=== PATIENT | female | born 1975 | race Caucasian/White ===

== ENCOUNTER 2017-07-31 14:15 | Outpatient (CLI) | payer OTHER ==
[2017-07-31 15:40] LABS: #Basophils 0.1 thou/uL (0.0-0.2); #Eosinphils 0.1 thou/uL (0.0-0.7); #Lymphocytes 2.5 thou/uL (1.20-3.40); #Monocytes 0.5 thou/uL (0.11-0.59); #Neutrophils 3.3 thou/uL (1.40-6.50); %Basophils 0.9 % (0.0-1.0); %Lymphocytes 38.2 % (21.0-51.0); %Neutrophils 50.9 % (42.0-75.0); Mean Corpuscular HGB CONC 34.2 g/dL (32.0-36.0); Mean Corpuscular Hemoglobin 30.8 pg (27.0-31.0); Mean Corpuscular Volume 90.1 fl (81.0-99.0); Mean Platelet Volume 7.7 fL (7.4-10.4); Platelet Count 236 thou/uL (130-400); RBC Distribution Width 11.7 % (11.5-14.5); Red Blood Cell (RBC) Count 4.55 mill/uL (4.20-5.40); White Blood Cell (WBC) Count 6.6 thou/uL (4.8-10.8)
[2017-07-31 16:37] LABS: BHCG - Serum Negative (NEGATIVE); Pregs Control Background? CLEAR/WHITE (CLR/WHITE); Pregs Control Bar Appear? YES (CONTROL BAR)
== END 2017-07-31 14:16 | disposition home or self-care (01) ==
LOC: LABBT 14:15
PROVIDERS: ATTEND Orthopaedic Surgery Hand Surgery
DX: Z01.812 Encounter for preprocedural laboratory examination (principal); D36.7 Benign neoplasm of other specified sites; Z88.6 Allergy status to analgesic agent
CPT/HCPCS: 84703; 85025

== ENCOUNTER 2017-08-05 06:02 | Day surgery (SDC) | payer OTHER ==
[2017-07-31 14:27] VITALS: BMI 26.6
[2017-08-05] MEDS ORDERED: CEFAZOLIN/Water 2 GM/20 ML SYRINGE ONE (06:40)
[2017-08-05] MEDS ORDERED: Bupivacaine PF 0.5% 30 ML VIAL ONE (06:44)
[2017-08-05] MEDS ORDERED: Betamet Acet/Betamet Na Ph 30 MG/5 ML VIAL ONE (06:44)
[2017-08-05] MEDS ORDERED: Bacitracin Zinc Ointment 30 gm TUBE ONE (06:44)
[2017-08-05] MEDS ORDERED: Fentanyl 100 MCG/2 ML VIAL ONE (06:52)
[2017-08-05] MEDS ORDERED: Midazolam HCl 2 mg/2 ml Vial ONE (06:52)
[2017-08-05] MEDS ORDERED: Ketorolac Tromethamine 30 MG/ML VIAL ONE (10:07)
--- NOTE | 2017-08-05 10:52 | OP ---
DATE OF PROCEDURE: 08/05/2017 PREOPERATIVE DIAGNOSIS: 1. Left wrist palmar ganglion. 2. Digital nerve compression index finger and radial side, ulnar side of thumb. Digital nerve compr ession by a 3.5 x 2.5 cm ganglion almost pear-shaped with both nerves draped over it and compressed. 3. Mild compression of the digital nerve to the radial side of the thumb from the ganglion. 4. Ganglion stalk coursing down to the metacarpophalangeal joint just underneath the A1 ashly regio n. PROCEDURE PERFORMED: 1. Excisional biopsy, large ganglion 3.5 x 2.5 cm. 2. Digital nerve neuroplasty of the following nerves: 1) Thumb, radial digital nerve; 2) thumb ul chandler digital nerve; 3) index finger radial digital nerve under magnification. BLOOD LOSS: 10 mL. TOURNIQUET TIME: 34 minutes. INJECTABLES: Betamethasone 5 mL drip technique around the nerves and in the bed of the previous gang lion stalk, 10 mL 0.5% Marcaine, 7 given before incision and 3 after. COMPLICATIONS: None. SPECIMEN TO LAB: Yes, with fresh frozen callback report benign cystic mass, no evidence of synovium or carcinoma. INDICATION: The patient with painful mass of last year, intermittently causes numbness into the inde x finger and thumb. DESCRIPTION OF PROCEDURE: After successful general endotracheal instilled, the limb was prepped and draped. Timeout had been done appropriately. We then exsanguinated the limb, inflated tourniquet 25 0 mmHg pressure. A zigzag incision made centered over the mass, the incision had to be approximately 4 cm long because the mass was almost 3 cm long. It was carried through skin and subcutaneous tissue, immediately cou ld see the ganglion, but its white fibers on its ulnar side completely covered the digital nerve bran ch to the ulnar side of the thumb and to the radial side of index finger. We had to perform a formal neuroplasty under magnification for the first third to surgery to free the nerve up around the mass. We then, found that the nerve also coursed around the base of the mass. We then dissected 360 degr ees revealed that the mass was sitting on the muscle of the thenar muscles, on the tendon sheath of t he index finger flexor tendon, but then coursed down toward the thumb carpometacarpal joint. We lift ed up the thenar muscles followed it down towards the joint, and then spared all flexor tendons, intr insics and the thenar muscles. The stalk itself was almost 4 mm wide when inflated, we removed this. The mass was now removed completely from its opening into this joint. At this point, we were able to release the tourniquet, obtained hemostasis using 1 vessel clip. We then placed Celestone along the course of the nerve in the base of the ganglion. Closed the incision with excellent hemostasis usin g interrupted 4-0 nylon simple pattern, injected the last of the Marcaine and the patient left the op erating room with a bulky dressing with no complications and excellent circulation.
[2017-08-05] MEDS ORDERED: Ondansetron HCl/PF 4 MG/2 ML Vial ONE (15:21)
[2017-08-05] MEDS ORDERED: PROPOFOL 200 MG/20 ML VIAL ONE (15:21)
[2017-08-05] MEDS ORDERED: diphenhydrAMINE 50 MG/ML VIAL ONE (15:21)
[2017-08-05] MEDS ORDERED: Dexamethasone 20 MG/5 ML VIAL ONE (15:21)
[2017-08-05] MEDS ORDERED: Metoclopramide HCl 10 MG/2 ML VIAL ONE (15:21)
[2017-08-05] MEDS ORDERED: Lidocaine 1% PF 5 ML VIAL ONE (15:21)
[2017-08-05] MEDS ORDERED: Ketorolac Tromethamine 60 MG/2 ML VIAL ONE (15:21)
== END 2017-08-05 11:10 | disposition home or self-care (01) ==
LOC: SDC 06:02
PROVIDERS: ATTEND Orthopaedic Surgery Hand Surgery
PROC: 01N40ZZ Release Ulnar Nerve, Open Approach (ICD-10-PCS; principal; 2017-08-05)
PROC: 0KB90ZX Excision of Right Lower Arm and Wrist Muscle, Open Approach, Diagnostic (ICD-10-PCS; principal; 2017-08-05)
PROC: 01N60ZZ Release Radial Nerve, Open Approach (ICD-10-PCS; principal; 2017-08-05)
DX: M71.331 Other bursal cyst, right wrist (principal); G56.11 Other lesions of median nerve, right upper limb; K51.90 Ulcerative colitis, unspecified, without complications; Z88.5 Allergy status to narcotic agent; Z98.891 History of uterine scar from previous surgery; Z98.890 Other specified postprocedural states
CPT/HCPCS: 88304; 88305; 88331; J0131; J0702; J1100; J1200; J1885; J2001; J2250; J2405; J2704; J2765; J3010; S0020